=== PATIENT | male | born 1935 | race Caucasian/White ===

== ENCOUNTER 2017-02-08 13:00 | Inpatient (IN) | payer MEDICARE, OTHER ==
[~2017-02-08] VITALS: Ht 177.8 cm; Wt 90.5 kg
--- NOTE | ~2017-02-08 | OR ---
[facility]GE[facility] 81 Y [address] ROOM: [place] [address] LOCATION: [facility] ADMIT DATE: 02/15/2017 OR/Procedure Report DISCHARGE DATE: FAMILY PHYSICIAN: Surya Metcalf MD ATTENDING PHYSICIAN: SURYA BOURGEOIS SURGEON: Surya Bourgeois MD GARMENT SEWER HAND: Jose Crenshaw CST/ANNIE and Miguel Vail. DATE OF PROCEDURE: 02/15/2017 PRE-OP DIAGNOSIS: Degenerative joint disease right knee. POST-OP DIAGNOSIS: Degenerative joint disease right knee. OPERATION: Right total knee arthroplasty with computer navigation. ANESTHESIA: Spinal anesthesia plus adductor canal block plus periarticular local anesthesia (ropivacaine with epinephrine and Toradol). ESTIMATED BLOOD LOSS: Less than 10 mL. DRAIN: None. SPECIMEN: None. COMPLICATIONS: None. IMPLANT SYSTEM: [employer] Triathlon. Size 6 right posterior stabilized femoral component. Size 5 Swan Modular tibial baseplate. An 11 mm posterior stabilized size 5 X3 tibial polyethylene insert. A 35 mm oval X3 patellar component (triple pegged). INDICATIONS FOR SURGERY: Ruddy Castellon is an 81-year-old male who presents with advanced right knee degenerative joint disease and associated severely compromised activities of daily living. The patient has decided to proceed with knee replacement after having been thoroughly counseled regarding the associated risks, benefits, and limitations. We have specifically reviewed the risks and implications of infection, deep venous thrombosis, pulmonary embolism, mortality, neurovascular complications, blood transfusion (and associated potential for disease transmission or transfusion reaction), stiffness, instability, mechanical deterioration of the components (due to wear and or loosening), and the potential need for revision. We have also emphasized the importance of active involvement and compliance with post- operative physical therapy as a means of optimizing range of motion and PATIENT'S NAME: [facility] AGE: 81 Y [address] ROOM: [place] [address] LOCATION: [facility] ADMIT DATE: 02/15/2017 OR/Procedure Report DISCHARGE DATE: FAMILY PHYSICIAN: Surya Metcalf MD ATTENDING PHYSICIAN: SURYA BOURGEOIS functional recovery. Informed consent has been granted. DESCRIPTION OF PROCEDURE: The patient was positioned supine after administration of anesthesia and prophylactic antibiotics. A well-padded pneumatic tourniquet was placed around the right proximal thigh, and the right lower extremity was prepped and draped with vigilant sterile technique. The patient's name as well as the intended operative side and procedure were confirmed with a verbal time-out involving myself, the circulating nurse, the scrub nurse, and the anesthesiologist. Examination under anesthesia demonstrated a very large effusion. There were no active skin lesions or masses. There was no erythema. There was no abnormal warmth. Range of motion under anesthesia was from a 5 degrees flexion contracture to 125 degrees of flexion. There was no ligamentous insufficiency. The right lower extremity was elevated and exsanguinated with an Esmarch wrap, and the pneumatic tourniquet was inflated to 300mmHg. The knee was approached through a longitudinal midline incision. A medial parapatellar arthrotomy was performed and the patella was everted. Examination of the joint space demonstrated a very large amount of benign-appearing translucent synovial fluid. There was generalized, moderately proliferative synovitis. An extensive synovectomy was performed. Cruciate ligaments were intact. There was a 1 cm diameter osseous loose body at the posterior aspect of the intercondylar notch. There was a 1 x 2 cm region of full-thickness articular cartilage loss at the medial facet of the patella. There were 2 separate, 1 cm diameter regions of full-thickness articular cartilage loss at the central aspect of the femoral trochlea. There was full-thickness loss of articular cartilage throughout the medial femoral condyle and throughout 90% of the medial tibial plateau. There was a large osteophyte at the anterior medial aspect of the medial tibial plateau. There was a large osteophyte at the medial femoral condyle. There was a small osteophyte at the lateral tibial plateau. There were mild grade 3 degenerative changes at the lateral two-thirds of the lateral tibial plateau. There was extensive degenerative tearing of the remnants of the medial meniscus. There was moderate inner perimeter tearing of the lateral meniscus. Remnants of the menisci and cruciate ligaments were excised. The [employer] navigation femoral tracker was pinned in place at the distal aspect of the femoral trochlea. Absence of motion between the femur and the tracking device was confirmed manually and visually. Femoral osseous landmarks were obtained in order to calibrate the computer navigation system. Landmarks included the center of rotation of the ipsilateral hip, the center-point of the distal femur, the femoral AP axis, 57 points on the medial femoral condyle articular surface, and 57 points on the lateral femoral condyle articular PATIENT'S NAME: RUDDY CASTELLON [facility] AGE: 81 Y [address] ROOM: [id number] [place], [place] [address] LOCATION: [facility] ADMIT DATE: 02/15/2017 OR/Procedure Report DISCHARGE DATE: FAMILY PHYSICIAN: Surya Metcalf MD ATTENDING PHYSICIAN: SURYA BOURGEOIS. The eyeOS computer navigation system was subsequently utilized to position the distal femoral resection block such that the distal femoral resection was performed perfectly perpendicular to the femoral mechanical axis. The distal femoral resection was performed with a [employer] oscillating saw. The eyeOS computer navigation tibial tracker was pinned in place at the anterior aspect of the tibial plateau. Absence of motion between the tibia and the tracking device was confirmed manually and visually. Tibial osseous landmarks were obtained in order to calibrate the computer navigation system. Landmarks included the center-point of the tibial plateau, the AP tibial axis, 57 points on the medial tibial plateau articular surface, 57 points on the lateral tibial plateau articular surface, the medial malleolus, and the lateral malleolus. The eyeOS computer navigation system was subsequently utilized to position the proximal tibial resection block such that the proximal tibial resection was performed perfectly perpendicular to the tibial mechanical axis. The proximal tibial resection was performed with a [employer] Precision oscillating saw. Perpendicularity of the tibial resection with respect to the tibial shaft axis was reconfirmed by inserting a spacer-block attached to an extramedullary guide violette. External rotation of the anterior and posterior femoral resections was set parallel to the epicondylar axis and carefully adjusted in order to create a rectangular flexion gap. The box resection was performed with a reciprocating saw. Anterior and posterior chamfer resections were performed with the oscillating saw. Posterior condyle osteophytes were excised with an osteotome. All other osteophytes were excised with a rongeur. Resection of all remnants of the menisci was reconfirmed. Flexion and extension gaps were confirmed to be symmetric and well balanced with a spacer-block technique. The patella resection was performed with an oscillating saw such that the composite thickness of the reconstructed patella was equivalent to the thickness of the [place] [employer] patella. Patella tracking was confirmed to be optimal. A limited lateral retinacular release was required to facilitate eversion of the patella. This was not required for patella tracking. Patella tracking was optimal. All trial components were removed and all prepared osseous surfaces were thoroughly irrigated with pulsatile saline lavage and dried prior to cementing all three components in a single stage using [employer]man Simplex cement containing pre-mixed tobramycin. All extruded excess cement was removed. The entire joint space was thoroughly inspected and thoroughly irrigated with bacteriostatic pulsatile saline lavage to assure that there was no residual debris of any sort. PATIENT'S NAME: RUDDY CASTELLON [facility] AGE: 81 Y [address] ROOM: [address] [address] LOCATION: [facility] ADMIT DATE: 02/15/2017 OR/Procedure Report DISCHARGE DATE: FAMILY PHYSICIAN: Surya Metcalf MD ATTENDING PHYSICIAN: SURYA BOURGEOIS Final range of motion was from full extension (with no passive hyperextension), 130 degrees of flexion. Patella tracking was reconfirmed to be optimal. There was excellent anteroposterior stability at 90 degrees of flexion. There was 0 mm of medial lift-off to valgus stress in full extension. There was 1 mm of lateral lift-off to varus stress in full extension. The arthrotomy was closed with multiple simple and [id number] interrupted #1 Vicryl. Subcutaneous tissues were thoroughly re-irrigated with bacteriostatic pulsatile saline lavage. Subcutaneous tissues were re- approximated with simple buried interrupted #0 Vicryl sutures. The skin was closed with simple buried interrupted 2-0 Vicryl sutures followed by surgical fantasma. The dressing consisted of Xeroform gauze, 4x4 gauze, ABD pads and two 6-inch Lawrence Wraps. There were no intra-operative complications. MD JE MALDONADO/demetrio /[id number] d: 02/15/17 1001 t: 02/26/17 1202, OPERATIVE SUMMARY
--- NOTE | ~2017-02-08 | DS ---
PATIENT'S NAME: SENA OSORIO [facility] AGE: 81 Y [address] ROOM: [place] [address] LOCATION: [facility] ADMIT DATE: 02/15/2017 Discharge Summary DISCHARGE DATE: 02/17/2017 FAMILY PHYSICIAN: Maykel Metcalf MD ATTENDING PHYSICIAN: Maykel Servin PRIMARY DIAGNOSIS: Degenerative joint disease of the right nee. SECONDARY DIAGNOSES: 1. Gastroesophageal reflux disease. 2. Hyperlipidemia. 3. Benign prostatic hyperplasia. 4. Hypertension. PROCEDURE PERFORMED: Right total knee arthroplasty with computer navigation. HISTORY: The patient is an 81-year-old male, who presents with advanced right knee degenerative joint disease and associated severely compromised activities of daily living. The patient has decided to proceed with total knee arthroplasty after having been thoroughly counseled regarding the risks, benefits, limitations and alternatives. Please refer to the outpatient clinic notes and admission history and physical for this patient. HOSPITAL COURSE: The patient underwent a right total knee arthroplasty on 02/15/2017 without complications. Spinal anesthesia plus adductor canal block plus periarticular local anesthesia was utilized. The patient received 24 hours of perioperative prophylactic antibiotics and remained hemodynamically stable, neurovascularly intact throughout the entire hospital course. The postoperative prophylactic deep venous thrombosis prophylaxis consisted of Xarelto 10 mg, early mobilization and pneumatic compression devices. Daily physical therapy for gait training, transfer training range of motion and quadriceps isometric exercises were received. The patient progressed well in physical therapy. On the date of discharge, 02/17/2017, the incision at the knee was healing well and showed no signs of infection. DISPOSITION: Home. DISCHARGE ACTIVITY: The patient is to bear weight as tolerated with range of motion and quadriceps isometric exercises as instructed. The operative extremity is to be elevated at least 90% of the day. There is to be sterile 4x4 gauze dressings to the incision daily. Dr. Servin is to be notified immediately if there is any increased pain, fevers, chills erythema or drainage. DISCHARGE MEDICATIONS: PATIENT'S NAME: SEAN OSORIO [facility] AGE: 81 Y [address] ROOM: [place] [address] LOCATION: N ADMIT DATE: 02/15/2017 Discharge Summary DISCHARGE DATE: 02/17/2017 FAMILY PHYSICIAN: Maykel Metcalf MD ATTENDING PHYSICIAN: Maykel Servin 1. Xarelto 10 mg, take 1 tab p.o. daily for DVT prevention. 2. Oxycodone 5 mg, take 1 to 2 tablets p.o. every 4 hours as needed for pain. FOLLOWUP: Followup appointment is to be with Dr. Servin on Wednesday February 22, 2017, for initial postoperative evaluation. WOOD GOODWIN FOR MD ARACELI MALDONADOB/modl /[id number] d: 02/22/17240 t: 02/25/17 0921, DISCHARGE SUMMARY
[2017-02-08] MEDS ORDERED: OMEGA 3 FISH O1 EACH PO (14:57)
[2017-02-08] MEDS ORDERED: ASPIRIN325 MG PO (14:57)
[2017-02-08] MEDS ORDERED: HYDRODIURIL25 MG PO (14:59)
[2017-02-08] MEDS ORDERED: FLOMAX0.4 MG PO (14:59)
[2017-02-08] MEDS ORDERED: CARDURA8 MG PO (14:59)
[2017-02-08] MEDS ORDERED: PRILOSEC20 MG PO (14:59)
[2017-02-08] MEDS ORDERED: TEMOVATE 0.05%30 GM TOP (15:00)
[2017-02-08] MEDS ORDERED: FLONASE 50 MCG/16 GM NOSE (15:01)
[2017-02-15] MEDS ORDERED: ZYRTEC10 MG PO (05:47)
[2017-02-15] MEDS ORDERED: LIPITOR10 MG PO (05:48)
--- NOTE | 2017-02-15 17:27 | NUR ---
ARRIVED FROM PACU AT 1000. IS ON ROUTINE VITAL SIGNS NOW. HAS HAD ROXICODONE 5MG THREE TIMES THE LAST TIME AT 1637. UNABLE TO VOID SO WAS STRAIGHT CATHED FOR 1000 ML AT 1330. NO VOID SINCE . WAS BLADDER SCANNED AT 1640 WITH 371. HAS FULL SENSATION BACK. UP IN THE CHAIR DRESSING C/D/I. TAKING PO WITHOUT DIFFICULTY. VERY COOPERATIVE WITH CARES.
--- NOTE | 2017-02-16 04:40 | NUR ---
Significant Event: Alert and oriented X3. Heart rate bradycardic with lowest at 46 bpm while awake resting. To call MD if HR <50 AND SBP <100. CSM WNL. Up with 1 person assist, gait belt and walker. Dressing CDI. Taking oxycodone for pain, last given at 0304. Rates pain 0-1/10. Taking PO well. Has voided x3 this shift for a total of 350 ml. Pt has difficulty starting stream, gave HS dose of flomax. Follow up:
--- NOTE | 2017-02-16 10:02 | NUR ---
Introduced self and CM role to patient and at bedside. Pt identified that he has had his knee done before and still has all the equipment from that prior surgery. Plan is return back to his home in [place] with support from his . No other needs or concerns at this time. Plan to discharge back to home tomorrow 02/16. CM internal control analyst TH.
--- NOTE | 2017-02-16 17:07 | NUR ---
Significant Event: Pt AOx3. VSS, CSM WNL. Dressing C/D/I. Byron hose on. Foot pumps in use. Ice to knee. Pain controlled with PRN Roxicodone. Up with SBA. Uses IS as instructed. Voiding without difficulty, passing flatus. Good oral intake. Possible discharge tomorrow. Follow up:
--- NOTE | 2017-02-17 04:02 | NUR ---
Significant Event: Alert and oriented. Pt was found in bathroom at 0035 after setting off bed alarm, without use of walker. Pt states he had to urinate and had forgotten where he was at. Pt quickly reoriented. Vital signs stable. Voiding without difficulty. Dressing to R) knee is CDI. IV SL'd. Roxicodone given for pain X2 last at 2345. Scheduled tylenol given. CSM WNL. Home today. Follow up:
[2017-02-17] MEDS ORDERED: TYLENOL EXTRA500 MG PO (09:38)
[2017-02-17] MEDS ORDERED: COLACE100 MG PO (09:39)
[2017-02-17] MEDS ORDERED: MIRALAX17 GM PO (09:40)
[2017-02-17] MEDS ORDERED: XARELTO10 MG PO (09:42)
[2017-02-17] MEDS ORDERED: ROXICODONE 5MG (5 MG PO (09:43)
--- NOTE | 2017-02-17 15:14 | NUR ---
Reviewed discharge instructions with and patient. Both verbalize understanding of all instructions. Reveiwed: all medications, care of incision, dressing, when to call the doctor, dvt prevention, s/s infection, activity, ez wrap, etc. Refer to instructions. All belongings sent with patient, including ez wrap, To front door per w/c. Encouraged to call md with any questions after discharge.
== END 2017-02-17 14:41 | disposition disaster alternative care site (69) | DRG 470 ==
LOC: G3N 02-15 05:03
PROVIDERS: ADMIT Orthopaedic Surgery
PROC: 0SRC0J9 Replacement of Right Knee Joint with Synthetic Substitute, Cemented, Open Approach (ICD-10-PCS; principal; 2017-02-15)
PROC: 8E0YXBZ Computer Assisted Procedure of Lower Extremity (ICD-10-PCS; principal; 2017-02-15)
DX: M17.11 Unilateral primary osteoarthritis, right knee (principal); R00.1 Bradycardia, unspecified; I10 Essential (primary) hypertension; E78.5 Hyperlipidemia, unspecified; K21.9 Gastro-esophageal reflux disease without esophagitis; N40.0 Benign prostatic hyperplasia without lower urinary tract symptoms; Z96.652 Presence of left artificial knee joint; L40.9 Psoriasis, unspecified; H91.90 Unspecified hearing loss, unspecified ear; Z79.82 Long term (current) use of aspirin; Z85.828 Personal history of other malignant neoplasm of skin; K59.00 Constipation, unspecified
CPT/HCPCS: C1713; C1776; J0690; J1100; J1885; J2405; J2795; J7120